=== PATIENT | female | born 1965 | race African-American/Black ===

== ENCOUNTER → 2017-06-11 | Outpatient (CLI) | payer MEDICARE ==
--- NOTE | ~2017-06-11 | CR63 ---
[facility] A Service of [facility] RADIOLOGY TEXT RESULTS PATIENT: DEAN VASQUEZ LOCATION: [facility] : 61 UNIT #: [id number] AGE: [address]: PALMA HYATT MD SEX: F ORDER DR: [id number] [facility] [address] [place], [place] [address] [id number] MR#: [id number] Acc #: [id number] NAME: DEAN VASQUEZ : 1965 SEX: F STUDY DATE/TIME: 06/11/2017 15:45 UNIT: [facility] ROOM: STUDY DESCRIPTION: CR Chest 2 View Attending Physician: Palma Hyatt M.D. Referring Physician: Palma Hyatt M.D. Ordering Physician: Palma Hyatt M.D. Primary Care Physician: Palma Hyatt M.D. MEDICAL IMAGING REPORT This report is preliminary unless electronic signature is present EXAM Chest 2 views 06/11/2017 1545 hours HISTORY Two-week history of exertional dyspnea, cough with mild congestion. COMPARISON 11/06/2016 FINDINGS Upright PA and lateral views of the chest demonstrate mild cardiomegaly and a tortuous aorta, similar to prior study. Lungs are well expanded and clear. There are no effusions. IMPRESSION There is mild cardiomegaly and a tortuous aorta, similar to 11/06/2016. The lungs are clear of acute densities. There is no pleural effusion. Dictated by... Kasandra Ovalle M.D. THIS IS AN ELECTRONICALLY VERIFIED REPORT Kasandra Ovalle M.D. at 06/12/2017 9:26 AM CINDY/buck TD: 06/12/2017 02:07 JOB #: [id number] MEDICAL IMAGING REPORT Page 1 of 1 COPY
== END | disposition home or self-care (01) ==
LOC: CRAD 15:19
DX: R06.09 Other forms of dyspnea (principal); I51.7 Cardiomegaly; I77.1 Stricture of artery
CPT/HCPCS: 71020